=== PATIENT | male | born 1945 | race Caucasian/White ===

== ENCOUNTER → 2016-12-25 | Outpatient (CLI) | payer MEDICARE, OTHER ==
[~2016-12-25] MED LIST: NO MEDICATIONS
--- NOTE | ~2016-12-25 | CT2 ---
[facility] A Service of [facility] & [facility] RADIOLOGY TEXT RESULTS PATIENT: BALA WILHELM LOCATION: [facility] [place] : 49 UNIT #: [id number] AGE: [address]: Cale Kerns MD SEX: M ORDER DR: [id number] [address] [address] [id number] O MR#: [id number] Acc #: [id number] NAME: BALA WILHELM. : 1945 SEX: M STUDY DATE/TIME: 12/25/2016 10:01 UNIT: [facility] [place] ROOM: STUDY DESCRIPTION: CT Abd and Pelv W Cont Attending Physician: Cale Kerns M.D. Referring Physician: Cale Kerns M.D. Ordering Physician: Cale Kerns M.D. Primary Care Physician: Cale Kerns M.D. MEDICAL IMAGING REPORT This report is preliminary unless electronic signature is present. EXAM Abdomen and pelvis CT with contrast, 12/25/2016. INDICATION 71-year-old male. Left-sided abdominal pain for 2-3 months. Left lower quadrant abdominal pain. No history of malignancy or prior abdominal surgery. TECHNIQUE Contrast enhanced CT of the abdomen and pelvis was performed. This CT exam was performed with one or more of the following radiation dose reduction techniques: automatic exposure control, adjustment of mA and/or kV according to patient size, and iterative reconstruction. COMPARISON STUDIES No comparisons. FINDINGS CT ABDOMEN: Lung bases are clear. There is a 5 mm noncalcified nodule in the right middle lobe. If the patient is at high risk for malignancy, then CT followup should occur at 6-12 months. If the patient is at low risk, followup should occur at 12 months. No pericardial or pleural effusion. The aorta demonstrates atherosclerotic change but no aneurysm or dissection. Spleen, adrenal glands, and pancreas are unremarkable and the gallbladder is normal. Liver demonstrates mild fatty infiltration. Kidneys unremarkable. Incidental cyst in the upper pole left kidney. CT PELVIS: Bladder unremarkable. Prostate within normal limits. Moderate stool burden in the colon. Bowel otherwise unremarkable. No obstruction or focal inflammatory change. Appendix normal. Inguinal [facility] A Service of [facility] & [facility] RADIOLOGY TEXT RESULTS PATIENT: BALA WILHELM LOCATION: [facility] [place] : 49 UNIT #: [id number] AGE: [address]: Cale Kerns MD SEX: M ORDER DR: shayla unremarkable. No suspicious bone lesion. The bones are osteopenic and demonstrate multilevel degenerative change in the thoracolumbar spine with thoracolumbar spurring. IMPRESSION 1. No clearly acute process in the abdomen or pelvis. No bowel obstruction, drainable fluid collection, or focal area of inflammatory change and the appendix is normal. 2. Incidental 5 mm noncalcified nodule in the right lung. See followup recommendations in the body of the report, absent prior outside studies documenting 2 years of stability. 3. Incidental left renal cyst and mild fatty infiltration of the liver. Dictated by... Shakir Parada M.D. THIS IS AN ELECTRONICALLY VERIFIED REPORT Shakir Parada M.D. at 12/25/2016 4:53 PM RADHA/juancarlos TD: 12/25/2016 16:31 JOB #: [id number] MEDICAL IMAGING REPORT Page 1 of 1
[2016-12-25 08:45] LABS: POC - GFR >60.0 mL/min (>60)
== END | disposition home or self-care (01) ==
LOC: SCT 08:00
PROVIDERS: Family Medicine
DX: R10.32 Left lower quadrant pain (principal)
CPT/HCPCS: 74177; 82565; Q9967

== ENCOUNTER → 2017-01-19 | Day surgery (SDC) | payer MEDICARE, OTHER ==
--- NOTE | ~2017-01-19 | OR ---
Unit #: [id number] #: [id number] Patient: BALA WILHELM [id number] [address] [place], [place] [address] [id number] O MR#: [id number] NAME: BALA WILHELM ROOM: Date of Procedure: 01/19/2017 Admission Date: 01/19/2017 Surgeon: Derek Manriquez M.D. : 1945 Attending Physician: Derek Manriquez M.D. Primary Care Physician: Cale Kerns M.D. OPERATIVE REPORT PREOPERATIVE DIAGNOSIS Enlarging soft tissue mass of the forehead. POSTOPERATIVE DIAGNOSIS Lipoma. PROCEDURE PERFORMED Excisional biopsy of 2.8 x 2.2 cm lipoma. ANESTHESIA Local anesthetic. ESTIMATED BLOOD LOSS 20 mL. INDICATIONS FOR PROCEDURE A 71-year-old gentleman, came to the office with an enlarging and a large soft tissue mass in the center of his forehead. DESCRIPTION OF PROCEDURE The patient was admitted to [facility], positively identified, and transported to the operating room. After appropriate monitoring and positioning, he was prepped and draped in usual sterile fashion. In the skin line of his forehead, local anesthetic was infiltrated to create a field block. An incision in the skin line was made. I dissected down and there was an encapsulated lipoma. We dissected the lipoma out completely along its soft tissue attachments to the skull and surrounding soft tissue. Once the lesion was removed, it was measured and sent to the laboratory. I irrigated and obtained hemostasis and infiltrated with more 1% lidocaine and then closed the skin with 4-0 Monocryl subcuticular closure and Dermabond skin adhesive. Sponges and needle counts were correct x3. The patient tolerated the procedure well and transported to recovery in stable condition. Findings and postoperative instructions were discussed with the patient. Dictated by... Ghazala Day/marissa Unit #: [id number] #: [id number] Patient: BALA WILHELM TD: 01/19/2017 23:19 JOB #: [id number] OPERATIVE REPORT Page 1 of 1 X Derek Manriquez MD PROCEDURE OPERATIVE NOTE
== END | disposition home or self-care (01) ==
LOC: CSUR 07:28
DX: D17.0 Benign lipomatous neoplasm of skin and subcutaneous tissue of head, face and neck (principal); K21.9 Gastro-esophageal reflux disease without esophagitis; E66.9 Obesity, unspecified; Z68.31 Body mass index [BMI] 31.0-31.9, adult; Z98.52 Vasectomy status; Z98.890 Other specified postprocedural states
CPT/HCPCS: 88304